=== PATIENT | male | born 2005 | race Hispanic/Latino ===

== ENCOUNTER 2025-02-12 12:36 | Emergency (ER) | payer BC ==
[~2025-02-12] VITALS: Ht 167.6 cm; Wt 90.7 kg
[~2025-02-12 12:36] MED LIST: CYCL10TA16 PO; IBUP-1492 PO
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
[2025-02-12 14:02] VITALS: BP 126/74; PULSE 62; RESP 16; TEMP 98.1; O2SAT 98
[2025-02-12] MEDS ORDERED: CEPH500B PO (14:09)
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
[2025-02-12] MEDS: BACITRACIN 1 EACH PACKET TP ONE (14:12)
== END 2025-02-12 14:15 | disposition home or self-care (01) ==
LOC: EDH 12:36
DX: L03.113 Cellulitis of right upper limb (principal); W50.3XXA Accidental bite by another person, initial encounter; Y93.89 Activity, other specified; Y92.89 Other specified places as the place of occurrence of the external cause; Y99.8 Other external cause status
CPT/HCPCS: 99284; 90714; 73090; 96372; 90471; J0696